=== PATIENT | female | born 1995 | race Caucasian/White ===

== ENCOUNTER 2017-04-10 11:55 | Emergency (ER) | payer OTHER ==
[~2017-04-10] VITALS: Ht 157.5 cm; Wt 72.7 kg
[2017-04-10 12:15] VITALS: BP 95/62; PULSE 119; RESP 18; O2SAT 96
--- NOTE | 2017-04-10 12:52 | ED.REPORT ---
HPI-General Illness Date of Service Apr 10, 2017 ED Provider: Ayden Villalba Patient is a 21 year old female with a hx of asthma who presents to the ED complaining of bilateral upper extremity pain onset 4 days ago. She has had similar symptoms before and reports that every few months for the past year she gets these "pain attacks" for a few days. She was seen at [facility] and diagnosed with spinal arthritis. She denies neck pain, leg pain, or any other symptoms. She has been taking Ibuprofen, hydrocodone, and Percocet for her pain. Nursing Notes Stated Complaint: PAIN IN BOTH ARMS Chief Complaint: General Complaint Nursing Notes Reviewed: Yes Allergies: Coded Allergies: No Known Allergies (Unverified , 04/10/17) Scheduled PRN Naproxen (Naproxen) 500 Mg Tab 500 MG PO BID PRN PRN For Pain General Time Seen by MD: 12:52 Chief Complaint Other (Upper extremity pain ) Hx Obtained From: Patient Arrived By: Walk-in Sudden in Onset?: Yes Onset Occurred: 3 days ago Symptom Duration: Since onset Similar Sx Previous: Yes Past Medical History Past Medical History Reports: Asthma Past Surgical History Reports: Smoking History Current Every Day Smoker Social History Alcohol Use: Denies alcohol use Drug Use: Meth (Smokes ), THC Other Social History: From out of town Ambulatory Status Independent Review of Systems -leg pain Full Review of Systems Musculoskeletal: Reports: Extremity pain (Upper extremities ), Denies: Neck pain Complete sys rev & neg: except as marked. Physical Exam Vital Signs Vital Signs Date Time Temp Pulse Resp B/P Pulse Ox O2 Delivery O2 Flow Rate FiO2 04/10/17 14:24 109 16 99 Room Air 04/10/17 12:15 36.9 119 18 95/62 96 Room Air Initial VS: Reviewed General/Constitutional: Well-developed, Well-nourished Head / Eyes: Atraumatic, Normocephalic Neck: Full range of motion Respiratory: No respiratory distress Cardiovascular: Intact distal pulses Skin: Warm, Dry Neck: Atraumatic, No midline vertebral tend No midline cervical tenderness. Upper Extremities Upper Extremity / MS: Atraumatic bilateral trapezius tenderness. Tender in multiple joints including fingers Motor and sensory intact. Normal pulses Mental Status: Positive: Somnolent Slow to respond, slightly slurred speech, slow visual tracking Interpretation & Diagnostics Lab Results Interpretation Result Diagram: 04/10/17 1315 04/10/17 1315 Test 04/10/17 13:15 White Blood Count 9.0th/mm3 (3.8-10.1) Red Blood Count 4.71mil/mm3 (3.90-5.20) Hemoglobin 13.5g/dL (12.0-15.6) Hematocrit 41.3% (35.0-46.0) Mean Corpuscular Volume 87.7fL (81-100) Mean Corpuscular Hemoglobin 28.7pg (27.0-35.0) Mean Corpuscular Hemoglobin Concent 32.7% (32.0-37.0) Red Cell Distribution Width 12.9% (12.3-15.4) Platelet Count 204bil/L (150-400) Neutrophils (%) (Auto) 48.5% (40-74) Lymphocytes (%) (Auto) 35.7% (14-46) Monocytes (%) (Auto) 8.7% (4-12) Eosinophils (%) (Auto) 6.5% (0-5) Basophils (%) (Auto) 0.4% (0-3) Erythrocyte Sedimentation Rate 6mm/hr (0-32) Sodium Level 140mEq/L (134-144) Potassium Level 4.2mEq/L (3.5-5.2) Chloride Level 105mEq/L (97-108) Carbon Dioxide Level 24mmol/L (18-29) Blood Urea Nitrogen 18mg/dL (6-20) Creatinine 0.77mg/dL (0.57-1.00) Estimat Glomerular Filtration Rate 133mL/min (>59) Glucose Level 120mg/dL (60-99) Calcium Level 8.8mg/dL (8.5-10.1) Total Bilirubin 0.2mg/dL (0.0-1.2) Aspartate Amino Transf (AST/SGOT) 21U/L (0-50) Alanine Aminotransferase (ALT/SGPT) 17U/L (0-32) Alkaline Phosphatase 61U/L (25-150) Total Protein 6.6g/dL (6.4-8.4) Albumin 4.0g/dL (3.4-5.0) Re-Eval/Medical Decision Med Decision/Clinical Course Patient symptoms are rather vague and nonspecific, had been chronic and cyclical, patient is from out of town and reports having had poor experiences at the surrounding hospitals in her area. Given her complaints, I entertained the idea of an inflammatory or autoimmune process, her labs are reassuring in this regard. Patient has no acute distress is somnolent in the room and her level of reported pain seems discordant with what is visualized and identified on physical exam. Overall I do not suspect any emergent medical pathology. She should follow very closely with an outpatient provider. Naproxen prescribed. Return and follow-up precautions given. Time of Eval: 14:08 Re-Evaluation/Progress Note: Rechecked pt. She reports she is from [place] and she is here because her local hospitals would "not help". Discussed plan for discharge. Patient understands and agrees with plan. All questions addressed at this time. Counseled Regarding: Diagnosis, Lab results, Need for follow-up, When/why to return to ED Discharge & Departure Primary Impression: Arm pain Laterality: bilateral Qualified Code: M79.601 - Pain in right arm Disposition: Home Discharge Condition All VS Reviewed: Yes Condition: Stable Additional Instructions: Thank you for entrusting us with your care. Your labs did not indicate a dangerous cause for your symptoms. Follow up with your primary doctor if your symptoms do not resolve. Return to the emergency department if you experience new or worsening symptoms. Scribe Attestation Portions of this note were transcribed by Betsy Deras. I, Dr. Villalba personally performed the history, physical exam and medical decision-making; I reviewed and confirmed the accuracy of the information in the transcribed note. Signed by: Betsy Deras 04/10/17, 1420 Ayden Villalba DO Apr 10, 2017 12:52 BETSY DERAS Apr 10, 2017 13:00
[2017-04-10 13:26] LABS: BASOPHILS % (AUTO) 0.4 % (0-3); EOSINOPHILS % (AUTO) 6.5 % (0-5); MONOCYTES % (AUTO) 8.7 % (4-12); Mean Corpuscular Hemoglobin 28.7 pg (27.0-35.0); Mean Corpuscular Volume 87.7 fL (81-100); NEUTROPHILS % (AUTO) 48.5 % (40-74); Platelet Count 204 bil/L (150-400)
[2017-04-10 13:51] LABS: ERYTHROCYTE SEDIMENTATION RATE 6 mm/hr (0-32)
[2017-04-10] MEDS ORDERED: NPR500T PO (14:18)
[2017-04-10 14:24] VITALS: PULSE 109; RESP 16; O2SAT 99
== END 2017-04-10 14:24 | disposition home or self-care (01) ==
LOC: SED 11:55
DX: M79.601 Pain in right arm (principal); M79.602 Pain in left arm; J45.909 Unspecified asthma, uncomplicated; F17.200 Nicotine dependence, unspecified, uncomplicated
CPT/HCPCS: 36415; 80053; 85025; 85651; 96372; 99284; J1885; J2060